=== PATIENT | female | born 1950 | race Caucasian/White ===

== ENCOUNTER 2019-05-06 21:04 | Emergency (ER) | payer MEDICARE, BC ==
[2019-05-06] MEDS ORDERED: Ketorolac Tromethamine 30 MG/ML VIAL ONE (21:55)
[2019-05-06] MEDS ORDERED: Metoclopramide HCl 10 MG/2 ML VIAL ONE (21:55)
[2019-05-06] MEDS ORDERED: diphenhydrAMINE 50 MG/ML VIAL ONE (21:55)
[2019-05-06 22:17] LABS: #Basophils 0.1 thou/uL (0.0-0.2); #Eosinphils 0.1 thou/uL (0.0-0.7); #Lymphocytes 2.6 thou/uL (1.20-3.40); #Monocytes 0.7 thou/uL (0.11-0.59); #Neutrophils 4.8 thou/uL (1.40-6.50); %Basophils 0.7 % (0.0-1.0); %Eosinophils 1.6 % (0.0-10.0); %Lymphocytes 30.9 % (21.0-51.0); %Monocytes 8.6 % (0.0-10.0); %Neutrophils 58.2 % (42.0-75.0); Hemoglobin 15.1 g/dL (12.0-16.0); Mean Corpuscular HGB CONC 33.9 g/dL (32.0-36.0); Mean Corpuscular Hemoglobin 31.4 pg (27.0-31.0); Mean Corpuscular Volume 92.8 fL (78.0-98.0); Mean Platelet Volume 9.2 fL (7.4-10.4); Platelet Count 241 thou/uL (130-400); RBC Distribution Width 11.8 % (11.5-14.5); Red Blood Cell (RBC) Count 4.79 mill/uL (4.20-5.40); White Blood Cell (WBC) Count 8.3 thou/uL (4.8-10.8)
--- NOTE | 2019-05-06 22:27 | CT ---
CT head noncontrast HISTORY: Headache. FINDINGS: There is no evidence of acute intracranial hemorrhage or infarct. The ventricles appear nor mal in size, shape and position. There is no mass effect or shift of midline structures. Visualized paranasal sinuses remain well aerated. IMPRESSION: No acute intracranial abnormalities are demonstrated.
== END 2019-05-06 23:08 | disposition home or self-care (01) ==
LOC: ERS 21:04
DX: G43.909 Migraine, unspecified, not intractable, without status migrainosus (principal); E78.5 Hyperlipidemia, unspecified; I10 Essential (primary) hypertension; F32.9 Major depressive disorder, single episode, unspecified; Z87.891 Personal history of nicotine dependence
CPT/HCPCS: 70450; 85025; 85652; 96365; 96375; J1200; J1885; J2765